=== PATIENT | male | born 1975 | race Caucasian/White ===

== ENCOUNTER 2020-02-09 08:39 | Emergency (ER) | payer OTHER ==
[~2020-02-09] VITALS: Ht 182.9 cm; Wt 90.7 kg
--- NOTE | 2020-02-09 08:45 | NUR ---
BIB [facility],WORSENING SHORTNESS OF BREATH SINCE YESTERDAY, WHEEZING ALBUTEROL HHN ENROUTE. PATIENT A/OX4, NO SHORTNESS OF BREATH NOTED UPON ARRIVAL. PATIENT'S PULSE OXIMETER READING IS AT 97% ON ROOM AIR. PATIENT'S CHANGED INTO A GOWN, ATTACHED TO THE BRAILLE TYPIST.
--- NOTE | 2020-02-09 08:50 | NUR ---
IV LINE ESTABLISHED ON RIGHT WRIST G18. RT AT BEDSIDE.
[2020-02-09] MEDS ORDERED: methylPREDNISolone SOD SUCC 125 MG/2ML VIAL ONE (08:52)
--- NOTE | 2020-02-09 08:53 | NUR ---
DR. GUEVARA AT BEDSIDE FOR EVALUATION.
[2020-02-09] MEDS ORDERED: IPRATROPIUM NEB FS 0.5 MG/2.5 ML AMPUL.NEB ONE ×2 (08:55→10:41)
[2020-02-09] MEDS ORDERED: ALBUTEROL FS 2.5 MG/3 ML VIAL.NEB ONE ×2 (08:55→10:41)
[2020-02-09] MEDS: methylPREDNISolone SOD SUCC 125 MG/2ML VIAL IV ONE (08:57)
[2020-02-09] MEDS ORDERED: IPRATROPIUM NEB FS 0.5 MG/2.5 ML AMPUL.NEB NEB ONE ×2 (09:00→10:30)
[2020-02-09] MEDS ORDERED: ALBUTEROL FS 2.5 MG/3 ML VIAL.NEB NEB ONE ×2 (09:00→10:30)
--- NOTE | 2020-02-09 10:42 | NUR ---
PATIENT A/OX4, BREATHING EVEN AND UNLABORED, PULSE OX SHOWS 100% ON THE MONITOR ON ROOM AIR. PATIENT DENIES PAIN AT THIS TIME, VITALS STABLE. CALLED RT FOR SECOND ROUND OF BREATHING TX, ORDERED BY DR. GUEVARA.
--- NOTE | 2020-02-09 11:32 | NUR ---
PT STATES FEELING MUCH BETTER S/P BREATHING TREATMENT. SATTING 100% RA. HOMELESS WAIVER SIGNED. PROVIDED W/ MEAL TRAY. PIV D/C'D. PT DISCHARGED W/ ACI AND PRESCRIPTION IN STABLE CONDITION.
[2020-02-09 11:35] VITALS: BP 119/73
== END 2020-02-09 11:35 | disposition home or self-care (01) ==
LOC: ER 08:42
DX: J45.901 Unspecified asthma with (acute) exacerbation (principal)
CPT/HCPCS: 94640 ×3; 96374; 99285; J2930

== ENCOUNTER 2021-02-24 11:37 | Emergency (ER) | payer OTHER ==
[~2021-02-24] VITALS: Ht 182.9 cm; Wt 81.6 kg
--- NOTE | 2021-02-24 12:00 | NUR ---
BIB [facility] [address] C/O LEFT KNEE PAIN AND SWELLING, HEARD A POP WHEN HE TRIED TO GET UP LAST NIGHT. RATES PAIN 5/10. WILL CONTINUE TO MONITOR THE PATIENT
[2021-02-24] MEDS ORDERED: IBUP-1955 PO (13:23)
[2021-02-24] MEDS ORDERED: TRAM50TA2 PO (13:23)
[2021-02-24] MEDS ORDERED: IBUPROFEN 600 MG TABLET PO ONE (13:30)
[2021-02-24] MEDS ORDERED: HYDROCODONE/APAP 5/325MG TABLET PO ONE (13:30)
[2021-02-24] MEDS ORDERED: IBUPROFEN 600 MG TABLET ONE (13:32)
[2021-02-24] MEDS ORDERED: HYDROCODONE/APAP 5/325MG TABLET ONE (13:32)
[2021-02-24 13:37] VITALS: BP 125/72
--- NOTE | 2021-02-24 13:37 | NUR ---
Patient discharged to home in stable condition. Written and verbal after care instructions given. Patient verbalizes understanding of instruction. pt ambulatory with a crutches and knee imboliizer to r knee.
== END 2021-02-24 13:38 | disposition home or self-care (01) ==
LOC: ER 11:40
DX: S89.82XA Other specified injuries of left lower leg, initial encounter (principal); J45.909 Unspecified asthma, uncomplicated; F17.200 Nicotine dependence, unspecified, uncomplicated; Z60.2 Problems related to living alone; X58.XXXA Exposure to other specified factors, initial encounter; Y93.89 Activity, other specified; Y92.89 Other specified places as the place of occurrence of the external cause; Y99.8 Other external cause status
CPT/HCPCS: 73552; 73564-TC

== ENCOUNTER 2022-03-16 18:05 | Emergency (ER) | payer OTHER ==
[~2022-03-16] VITALS: Ht 182.9 cm; Wt 81.6 kg
[~2022-03-16 18:05] MED LIST: IBUP-1955 PO; TRAM50TA2 PO
[2022-03-16 18:36] VITALS: BP 133/77
--- NOTE | 2022-03-16 19:20 | NUR ---
NEPHROSTOMY BAG EMPTIED; DRAINED URINE 50CC IN VOLUME, DARK YELLOW IN COLOR.
--- NOTE | 2022-03-16 19:25 | NUR ---
Patient discharged to [facility] in stable condition, accompanied by 2 Geraldine. Written and verbal after care instructions given. Patient verbalizes understanding of instruction.
== END 2022-03-16 19:26 ==
LOC: ER 18:09
DX: N99.528 Other complication of incontinent external stoma of urinary tract (principal); F17.200 Nicotine dependence, unspecified, uncomplicated; Z79.899 Other long term (current) drug therapy